=== PATIENT | male | born 1970 | race Caucasian/White ===

== ENCOUNTER 2018-10-26 07:27 | Emergency (ER) | payer BC, OTHER ==
[2018-10-26 07:40] VITALS: BP 127/80
[2018-10-26] MEDS ORDERED: Acetaminophen 500 MG Tab PO ONE (07:55)
--- NOTE | 2018-10-26 07:59 | EDM.PDOC ---
ED HPI GENERAL MEDICAL PROBLEM - General Chief Complaint: General Stated Complaint: FELT SICK FOR 2-3 DAYS Time Seen by Provider: 10/26/18 07:45 Source of Information: Reports: Patient, Old Records, RN History Limitations: Reports: No Limitations - History of Present Illness INITIAL COMMENTS - FREE TEXT/NARRATIVE: 48 yo male presents with a couple day hx of mild, non-productive cough, body aches and intermittent fevers. Has not been seen before today. No antipyretics today. Did not have an influenza vaccine this year. No nasal congestion. Onset: Gradual Onset Date: 10/24/18 Duration: Day(s):, Waxing/Waning Location: Reports: Chest, Generalized Quality: Reports: Ache (diffuse) Severity: Mild Improves with: Reports: Medication Worsens with: Reports: Other (uncertain) Context: Reports: Sick Contact (?) Associated Symptoms: Reports: Cough (dry), Fever/Chills, Malaise. Denies: Confusion, Chest Pain, Nausea/Vomiting, Rash, Shortness of Breath Treatments PLACEMENT DIRECTOR: Reports: Other (see below) (none) Generalized Pain Score (Numeric/FACES): 3 - Related Data Allergies Allergy/AdvReac Type Severity Reaction Status Date / Time No Known Allergies Allergy Verified 10/26/18 07:39 Home Meds: Home Meds NK [No Known Home Meds] 10/26/18 [History] Past Medical History Other Dermatologic History: Exzema - Past Surgical History Head Surgeries/Procedures: Reports: None Dermatological Surgical History: Reports: None Social & Family History - Tobacco Use Smoking Status *Q: Former Smoker Used Tobacco, but Quit: Yes Month/Year Tobacco Last Used: 2016 Second Hand Smoke Exposure: No - Caffeine Use Caffeine Use: Reports: Coffee - Alcohol Use Days Per Week of Alcohol Use: 4 Number of Drinks Per Day: 2 Total Drinks Per Week: 8 - Recreational Drug Use Recreational Drug Use: No ED ROS GENERAL - Review of Systems Review Of Systems: See Below Constitutional: Reports: Fever, Chills, Malaise HEENT: Reports: No Symptoms Respiratory: Reports: Cough. Denies: Shortness of Breath, Wheezing, Pleuritic Chest Pain, Sputum, Hemoptysis Cardiovascular: Reports: No Symptoms Endocrine: Reports: No Symptoms GI/Abdominal: Reports: No Symptoms : Reports: No Symptoms Musculoskeletal: Reports: No Symptoms Skin: Reports: No Symptoms Neurological: Reports: No Symptoms ED EXAM, GENERAL - Physical Exam Exam: See Below Exam Limited By: No Limitations General Appearance: Alert, WD/WN, No Apparent Distress Eye Exam: Bilateral Eye: Normal Inspection Ears: Normal External Exam, Normal Canal, Hearing Grossly Normal, Normal TMs Ear Exam: Bilateral Ear: Auricle Normal, Canal Normal, TM normal Nose: Normal Inspection, No Blood Throat/Mouth: Normal Inspection, Normal Lips, Normal Oropharynx, Normal Voice, No Airway Compromise Head: Atraumatic, Normocephalic Neck: Normal Inspection, Supple, Non-Tender Respiratory/Chest: No Respiratory Distress, Lungs Clear, Normal Breath Sounds Cardiovascular: Regular Rate, Rhythm, No Edema GI/Abdominal: Normal Bowel Sounds, Soft, Non-Tender, No Distention Back Exam: Normal Inspection. No: CVA Tenderness (R), CVA Tenderness (L) Extremities: Normal Inspection, Normal Range of Motion, Non-Tender, No Pedal Edema Neurological: Alert, Oriented, CN II-XII Intact, Normal Cognition, No Motor/ Sensory Deficits Psychiatric: Normal Affect, Normal Mood Skin Exam: Warm, Dry, Intact, Normal Color, No Rash Lymphatic: No Adenopathy Course - Vital Signs Last Recorded V/S: Last Vital Signs Temp 37.1 C 10/26/18 07:41 Pulse 78 10/26/18 07:41 Resp 13 10/26/18 07:41 BP 127/80 10/26/18 07:41 Pulse Ox 95 10/26/18 07:41 - Orders/Labs/Meds Meds: Medications Discontinued Medications Generic Name Dose Route Start Last Admin Trade Name Suleiman PRN Reason Stop Dose Admin Acetaminophen 1,000 mg 10/26/18 07:55 10/26/18 08:00 Tylenol Extra Strength PO 10/26/18 07:56 1,000 mg ONETIME ONE Administration Departure - Departure Time of Disposition: 08:21 Disposition: Home, Self-Care 01 Condition: Good Clinical Impression: Influenza A Clinical Impression: (Ruled Out): Influenza A (H1N1) - Discharge Information *PRESCRIPTION DRUG MONITORING PROGRAM REVIEWED*: Not Applicable *COPY OF PRESCRIPTION DRUG MONITORING REPORT IN PATIENT RAD: Not Applicable Instructions: Influenza, Adult, [id number] Referrals: Pierce Chisholm PA-C [Primary Care Provider] - Forms: ED Department Discharge Additional Instructions: Take Robitussin AC as directed for cough. Take ibuprofen and/or acetaminophen for pain/fever control. Drink ample fluids so your urine is light yellow in color. Rest. Hand washing and isolation to prevent spread. Recheck if worse with your provider.
== END 2018-10-26 08:31 | disposition home or self-care (01) ==
LOC: JP.ED 07:27
DX: J10.1 Influenza due to other identified influenza virus with other respiratory manifestations (principal); Z87.891 Personal history of nicotine dependence
CPT/HCPCS: 87804; 99283; A9270